=== PATIENT | female | born 1940 | race Caucasian/White ===

== ENCOUNTER 2016-09-30 08:46 | Outpatient (CLI) | payer MEDICARE, OTHER ==
[2014-03-31 12:31] VITALS: BP 124/78
[2016-09-30 09:23] LABS: eGFR (African) > 60; eGFR (Non-African) > 60
== END 2016-09-30 08:47 ==
LOC: LAB 08:46
PROVIDERS: ATTEND Family Medicine
DX: E11.9 Type 2 diabetes mellitus without complications (principal)
CPT/HCPCS: 36415; 80053; 83036

== ENCOUNTER 2017-06-26 15:57 | Outpatient (CLI) | payer MEDICARE, OTHER ==
[2014-03-31 12:31] VITALS: BP 124/78
[2017-06-26 17:09] LABS: eGFR (African) > 60; eGFR (Non-African) > 60
== END 2017-06-26 16:00 ==
LOC: LAB 15:57
PROVIDERS: ATTEND Family Medicine
DX: E11.9 Type 2 diabetes mellitus without complications (principal); I10 Essential (primary) hypertension
CPT/HCPCS: 36415; 80053; 83036

== ENCOUNTER 2017-08-15 10:34 | Outpatient (CLI) | payer MEDICARE, OTHER ==
[2014-03-31 12:31] VITALS: BP 124/78
--- NOTE | 2017-08-16 15:19 | HISTORY AND PHYSICAL REPORT ---
REFERRING PHYSICIAN: Dr. Alcides Snider Dear Alcides: HISTORY OF PRESENT ILLNESS: I had the opportunity of seeing Kellen Hidalgo today as an outpatient at [facility]. As you are aware, Kellen is a delightful 77-year-old white female who presents with back and right lower extremity radicular pain which has been present for approximately a year. Her history is significant in that she has had intermittent back and bilateral sciatic pain. She says that over the past year, her had a history of recurrent bone cancer and was needing a great deal of care and assistance and she was unable to seek care for herself. In that period of time, her has since and her symptoms are no better. She presents today with her son and granddaughter who say that she is becoming progressively worse and that she has relatively constant right leg pain which radiates down the posterior aspect of the right leg and, at times, into the groin on the right side and it is worse with ambulation. The more she walks, the more significant the pain symptoms become. She denies pain on the left at this time or symptoms consistent with neurogenic claudication. She appears to have symptoms more consistent with right-sided radiculitis. She rates the pain as severe as 9 over 10 on the visual analog scale and never better than 3 over 10 on the visual analog scale. It is better with rest and worse with standing and walking over the course of the day. She was better on prescription strength naproxen and taking trazodone 150 mg for sleep. She has had physical therapy and chiropractic manipulations in the past. She has not had home exercise or a TENS unit but she has realized nonsteroidal antiinflammatories. PAST MEDICAL HISTORY: 1. History of vision problems. 2. Urinary incontinence. 3. Non-insulin dependent diabetes. 4. Hypertension. PAST SURGICAL HISTORY: 1. Left total knee replacement. 2. Cholecystectomy. 3. Cataracts removed bilaterally with lens implants. DAILY MEDICATIONS: 1. Metformin 1000 mg b.i.d. 2. Amlodipine 10 mg daily. 3. Glimepiride 2 mg daily. 4. Irbesartan 150 mg daily. 5. Tylenol 650 mg 2 tablets daily. 6. Tylenol PM 2-1/2 tablets at bedtime p.r.n. ALLERGIES: She has no known drug allergies. SOCIAL HISTORY: She has never used tobacco. Unknown alcohol use. Denies recreational drug use. She has been a since March of 2017. She has 1 child. She is retired. She completed 13 years of schooling. She is not currently employed. She is not disabled. FAMILY HISTORY: Father with heart disease. REVIEW OF SYSTEMS: In the last month or so, she has had no complaints for her review of systems. Pain is worsened with sitting and gradually worsens as the day progresses and in any position too long and at night. Pain is improved with lying down and heat. PHYSICAL EXAMINATION: General: This is a well-nourished, well-developed white female appearing stated age. Vital Signs: BP: 140/80, P: 72, R: 20, oxygen saturation is 98% on room air. HEENT: Pupils are equal, round, and reactive to light and accommodation. Extraocular movements intact. No facial droop. Neck: There is full range of motion of the cervical spine. No evidence of adenopathy. Thyroid is nontender, not enlarged. Carotids are without bruits. Chest: Clear to auscultation bilaterally. Normal chest excursion. Heart: Regular rate and rhythm without murmur. Abdomen: Benign. Normoactive bowel sounds. Motor/sensory: Intact in the upper and lower extremities. Moves all extremities freely. Extremities: Positive straight leg raise on the right and negative straight leg raise on the left. Reflexes are 2+ and equal at patellar tendon and Achilles tendon. Strength is 5+ and equal in the lower extremities. Dorsiflexion and plantar flexion of the feet are intact. No dermatomal numbness or weakness. RADIOLOGY: Her MRI reveals multi-level degenerative disc disease and spondylolytic changes. Of note, she has a significant L5-S1 right-sided synovial osteophyte which contacts the lateral posterior portion of the neural foramen and results in some lateral recess stenosis and contacts the descending S1 nerve root as well. She, otherwise, has some L4-L5 narrowing and stenosis with ligamentum flavum hypertrophy but nothing severe, L3 disc protrusion with some facet hypertrophy as well. ASSESSMENT: Right lower extremity radiculitis. PLAN: I am going to plan today to place a right L5-S1 epidural injection and see how she does. I would consider possibly a transforaminal injections or even surgical referral to have the cyst/osteophyte removed. I discuss this with her son as well. Dr. Snider, thank you very much for allowing me to take part in the care of this nice lady. ADDENDUM: On further review of Mrs. Hidalgo's MRI done last month at [facility], there is an area at the L5-S1 facet which reveals an osteophyte synovial cyst which is encroaching on the descending S1 nerve root and to some extent on the existing L5 nerve root on the right side. There is some ossification as well on the left. I would keep this in mind going forward, as this may need a microdecompression. cc: Dr. Alcides CANALES
--- NOTE | 2017-08-16 15:24 | LESI WITH FLUORO ---
OPERATIVE PROCEDURE: Right L5-S1 epidural steroid injection with fluoroscopic guidance. DESCRIPTION OF PROCEDURE: The risks and benefits were discussed with the patient including the risk of infection, bleeding, nerve injury, and headache, as well as the risks of steroid exposure causing hyperglycemia, hypertension, osteoporosis, or increased infectious risks. The patient understood these risks and agreed to proceed. Consent was obtained prior to the procedure. The patient was placed in the prone position on the fluoroscopy table with a pillow underneath the abdomen to afford anterior flexion of the lumbar spine. The low back was cleaned AND A sterile drape was applied. An 18-gauge thin wall Tuohy epidural needle was advanced with normal saline loss of resistance technique and direct fluoroscopic guidance with a right paramedian approach at the L5-S1 level. On obtaining loss of resistance to normal saline, it was verified that there was no aspiration of CSF or blood. Furthermore, the needle tip location was verified with lateral and AP fluoroscopic views. Omnipaque 240 myelogram dye were injected through the epidural needle. The distribution of the dye was noted to be within the desired distribution within the lumbar epidural space. The medication was injected into the epidural space. The stylet was replaced in the needle and the needle was removed from the back. The patient tolerated the procedure well. The back was cleaned and a bandage was applied over the injection site. The patient was monitored for 20 minutes following the procedure. during this time the vital signs remained stable and the patient experienced no adverse sequelae. The patient was discharged in good condition. ASSESSMENT: Right lower extremity radiculitis. PLAN: Right L5-S1 epidural steroid injection with fluoroscopic guidance today. FOLLOWUP: Return to clinic if problems develop or worsen. cc: Dr. Alcides CANALES
== END 2017-08-15 10:35 ==
LOC: OUT 10:34
PROVIDERS: ATTEND Anesthesiology Pain Medicine
DX: M54.17 Radiculopathy, lumbosacral region (principal)
CPT/HCPCS: J3301; Q9966; 62323; 99213; G0463

== ENCOUNTER 2017-09-12 11:39 | Outpatient (CLI) | payer MEDICARE, OTHER ==
[2014-03-31 12:31] VITALS: BP 124/78
[2017-09-12] MEDS ORDERED: Lidocaine 1% 5ml(IM or SUTURE)(PAIN CLINIC) ONE (11:40)
[2017-09-12] MEDS ORDERED: TRIAMCINOLONE ACETONID 40MG/ML VIAL ONE (11:40)
[2017-09-12] MEDS ORDERED: SALINE FLUSH 10 ML DISP.SYRIN IVF ONE (11:40)
--- NOTE | 2017-09-13 09:59 | LESI WITH FLUORO ---
SUBJECTIVE: I had the opportunity of following up with Kellen Hidalgo. This is a delightful 77-year-old white female I saw with acute pain last month. She had right L5-S1 radiculitis associated with some disc degenerative disease and a synovial cyst at S1 and I gave her a right L5-S1 epidural injection and she is much improved. She is no longer having leg pain. She is still having some back discomfort. She has been back to relatively normal activity. She is very pleased with the results of the injection. At this point, I have told that I would recommend, as she is still symptomatic, a second epidural injection and then I would follow her up on an as-needed basis. She is in agreement today and I am going to proceed with a right L5-S1 epidural injection with fluoroscopic guidance. OPERATIVE PROCEDURE: Right L5-S1 epidural steroid injection with fluoroscopic guidance. DESCRIPTION OF PROCEDURE: The risks and benefits were discussed with the patient including the risk of infection, bleeding, nerve injury, and headache, as well as the risks of steroid exposure causing hyperglycemia, hypertension, osteoporosis, or increased infectious risks. The patient understood these risks and agreed to proceed. Consent was obtained prior to the procedure. The patient was placed in the prone position on the fluoroscopy table with a pillow underneath the abdomen to afford anterior flexion of the lumbar spine. The low back was cleaned and a sterile drape was applied. An 18-gauge thin wall Tuohy epidural needle was advanced with normal saline loss of resistance technique and direct fluoroscopic guidance with a right paramedian approach at the L5-S1 level. On obtaining loss of resistance to normal saline, it was verified that there was no aspiration of CSF or blood. Furthermore, the needle tip location was verified with lateral and AP fluoroscopic views. Omnipaque 240 myelogram dye was injected through the epidural needle. The distribution of the dye was noted to be within the desired distribution within the lumbar epidural space. The medication was injected into the epidural space. The stylet was replaced in the needle and the needle was removed from the back. The patient tolerated the procedure well. The back was cleaned and a bandage was applied over the injection site. The patient was monitored for 20 minutes following the procedure. during this time the vital signs remained stable and the patient experienced no adverse sequelae. The patient was discharged in good condition. ASSESSMENT: Lumbar radiculitis, now improved. PLAN: Right L5-S1 epidural steroid injection today. FOLLOWUP: Return to clinic if problems develop or worsen. Thank you, Dr. Snider, for allowing me to take part in the care of this nice lady. I appreciate the opportunity to take part in the care of your patients. cc: Dr. Alcides CANALES
== END 2017-09-12 11:40 ==
LOC: OUT 11:39
PROVIDERS: ATTEND Anesthesiology Pain Medicine
DX: M54.16 Radiculopathy, lumbar region (principal)
CPT/HCPCS: 62323; 99213; G0463; J3301; A4550; Q9966

== ENCOUNTER 2017-10-03 08:38 | Outpatient (CLI) | payer MEDICARE, OTHER ==
[2014-03-31 12:31] VITALS: BP 124/78
== END 2017-10-03 08:40 ==
LOC: LAB 08:38
PROVIDERS: ATTEND Family Medicine
DX: E11.9 Type 2 diabetes mellitus without complications (principal)
CPT/HCPCS: 36415; 80061; 83036

== ENCOUNTER 2018-02-28 17:42 | Emergency (ER) | payer MEDICARE, OTHER ==
[2018-02-28 18:02] VITALS: BP 153/80
--- NOTE | 2018-02-28 18:24 | ED Physician Documentation ---
General Adult - HISTORIAN Historian: patient, child (son) - HPI Stated Complaint: Fall/Lac Chief Complaint: General Adult Additional Information: Got foot tangled in rug, fell, landed on her face. Has an upper lip lac and a left eyebrow lac. No LOC. Unknown last tetanus. NIDDM on 500 mg metformin bid; HTN. Last fall 5 years ago. Occurred just prior to arrival. No other modifying factors or associated signs. - ROS CONST: no problems - PAST HX Past History: hypertension, other (above) Allergies/Adverse Reactions: Allergies Allergy/AdvReac Type Severity Reaction Status Date / Time No Known Drug Allergies Allergy Verified 02/28/18 18:30 Home Medications: Ambulatory Orders Medication Instructions Recorded amLODIPine BESYLATE [Norvasc] 2 tab PO DAILY 02/28/18 - SOCIAL HX Smoking History: non-smoker - FAMILY HX Family History: No - VITAL SIGNS Vital Signs: Vital Signs Temp Pulse Resp BP Pulse Ox 90 15 153/80 98 02/28/18 17:50 02/28/18 17:50 02/28/18 17:50 02/28/18 17:50 - REVIEWED ASSESSMENTS Nursing Assessment Reviewed: Yes Vitals Reviewed: Yes Procedures Wound Location: mouth Wound Length: 1; 1 Wound's Depth, Shape: linear, flap Wound Explored: clean Irrigated w/ Saline (ccs): 30 Betadine Prep?: No (chlorhexadine) Anesthesia: 0.5% Sensorcaine Volume of Anesthetic: 1 Wound Repaired With: sutures Suture Size/Type: 6:0 Number of Sutures: 3 (2 mucosa) Sterile Dressing Applied?: No ED Results Lab/Radiology - Orders Orders: ED Orders Category Date Time Status DiphMaddie(Acell),Tet Vac/Pf [Adacel] Med 02/28/18 18:10 Discontinued 0.5 ml IM .ONCE ONE General Adult Physical Exam - PHYSICAL EXAM GENERAL APPEARANCE: moderate distress EENT: eye inspection normal, ENT inspection normal, other (upper lip with t- shaped lac buccal mucosa, 1 cm wide. External lac about 1 cm in length within the vermilion. Sub q.) NECK: supple RESPIRATORY: no resp distress, breath sounds normal CVS: reg rate & rhythm BACK: normal inspection, other (movements w/o pain) SKIN: warm/dry, normal color, other (has 3-4 mm avulsion/laceration left lateral eyebrow. ) EXTREMITIES: normal range of motion (gait and stance), no evidence of injury NEURO: CN's nml as tested, motor nml, sensation nml, cognition normal Discharge Clincal Impression: Laceration of lip Qualifiers: Encounter type: initial encounter Qualified Code(s): S01.511A - Laceration without foreign body of lip, initial encounter Laceration of eyebrow Qualifiers: Encounter type: initial encounter Laterality: left Qualified Code(s): S01.112A - Laceration without foreign body of left eyelid and periocular area, initial encounter Referrals: Alcides Snider MD [Primary Care Provider] - 2 Days Additional Instructions: No very hot foods or liquids for 4 days. No rough foods like toast on the lacerated lips. Ask your provider to remove the stitches in 7-10 days. See your provider or return to the ER if the lip seems to be infected. Condition: Good Disposition: 01 HOME, SELF-CARE Decision to Admit: NO Decision Time: 19:43
[2018-02-28] MEDS: BUPIVACAINE HCL/PF 5 MG/ML 10ML VIAL IJ ONE (19:15)
[2018-02-28] MEDS: NEOMYCIN/BACITRACIN/POLYMYXINB 1 EACH OINT.PACK TP ONE (20:02)
[2018-02-28] MEDS: DIPH,PERTUSS(ACELL),TET VAC/PF 0.5 ML DISP.SYRIN IM ONE (20:06)
== END 2018-02-28 20:12 | disposition home or self-care (01) ==
LOC: ED 17:42
DX: S01.511A Laceration without foreign body of lip, initial encounter (principal); S01.112A Laceration without foreign body of left eyelid and periocular area, initial encounter; W19.XXXA Unspecified fall, initial encounter; Y92.9 Unspecified place or not applicable; Y93.9 Activity, unspecified; Y99.9 Unspecified external cause status
CPT/HCPCS: 90715; J3490; J7030; 12011; 90471; 96372

== ENCOUNTER 2018-11-14 11:34 | Outpatient (CLI) | payer MEDICARE, OTHER ==
[2018-11-14 11:55] LABS: BASOPHILS % 0.5 % (0.0-1.5); NEUTROPHILS # 4.6 # k/uL (1.4-7.7)
[2018-11-14 12:14] LABS: A1C 5.8 % (<5.7); HDL 47 mg/dL (>40); eGFR (Non-African) > 60
== END 2018-11-14 11:36 ==
LOC: LAB 11:34
PROVIDERS: ATTEND Family Medicine
DX: I10 Essential (primary) hypertension (principal); E11.9 Type 2 diabetes mellitus without complications
CPT/HCPCS: 36415; 80053; 80061; 83036; 85025